=== PATIENT | male | born 1940 | race Caucasian/White ===

== ENCOUNTER → 2016-11-27 | Outpatient (CLI) | payer BC ==
--- NOTE | 2016-11-27 15:32 | Diagnostic Imaging Report ---
INDICATION: Left lower extremity pain and swelling. TECHNIQUE: Multiple real-time grayscale images were obtained of the left lower extremity in various projections. Additional duplex Doppler and color Doppler images were also obtained. FINDINGS: The left common femoral, femoral and popliteal veins demonstrate normal response to compression, augmentation and Valsalva. There are no abnormal left lower extremity fluid collections or masses. IMPRESSION: No evidence of deep venous thrombosis in the left lower extremity. Dictated by: Dictated on workstation # [id number]
== END ==
LOC: RAD 14:10
PROVIDERS: ATTEND Physician Assistant Surgical
DX: R60.0 Localized edema (principal)